=== PATIENT | male | born 1955 | race Caucasian/White ===

== ENCOUNTER 2024-04-01 23:08 | Emergency (ER) | payer OTHER, MEDICARE ==
[2024-04-01 23:37] LABS: BASOPHILS ABSOLUTE AUTO 0.02 K/uL (0.00-0.20); BASOPHILS PERCENT AUTO 0.2 % (0.0-2.0); EOSINOPHILS ABSOLUTE AUTO 0.08 K/uL (0.00-0.50); EOSINOPHILS PERCENT AUTO 0.9 % (0.0-5.0); HEMATOCRIT 38.1 % (39.0-49.0); HEMOGLOBIN 12.8 g/dL (13.1-16.8); LYMPHOCYTES ABSOLUTE AUTO 1.63 K/uL (0.50-3.50); MEAN CORPUSCULAR HEMOGLOBIN 30.7 pg (28.2-33.3); MEAN CORPUSCULAR HGB CONC 33.6 g/dL (31.7-36.0); MEAN CORPUSCULAR VOLUME 91.4 fL (84.0-98.0); MONOCYTES ABSOLUTE AUTO 0.48 K/uL (0.00-1.00); MONOCYTES PERCENT AUTO 5.3 % (2.0-14.0); NEUTROPHILS ABSOLUTE AUTO 6.86 K/uL (1.40-7.00); NEUTROPHILS PERCENT AUTO 75.6 % (45.0-80.0); PLATELET COUNT,PLT 266 K/uL (150-350); RED BLOOD CELL COUNT 4.17 M/uL (4.33-5.41); RED CELL DISTRIBUTION WIDTH 15.8 % (11.2-14.1); WHITE BLOOD CELL COUNT,WBC 9.1 K/uL (4.0-10.2)
[2024-04-02] MEDS: Ondansetron 4 MG Tab.DIS PO ONE (00:08)
[2024-04-02] MEDS: Acetaminophen 500 MG Tab PO ONE (00:12)
[2024-04-02] MEDS: oxyCODONE 5 MG Tab PO ONE (00:12)
[2024-04-02 00:14] LABS: ALANINE AMINOTRANSFERASE,ALT 125 U/L (12-78); ALBUMIN 3.5 g/dL (3.4-5.0); ALKALINE PHOSPHATASE 78 IU/L (46-116); ANION GAP 9.1 meq/L (7-15); ASPARTATE AMNIOTRANSFERASE,AST 108 U/L (15-37); BILIRUBIN TOTAL 0.3 mg/dL (0.2-1.0); BLOOD UREA NITROGEN,BUN 19 mg/dL (7-18); CALCIUM 8.9 mg/dL (8.5-10.1); CARBON DIOXIDE,CO2 26.9 mmol/L (21.0-32.0); CHLORIDE,CL 102 mmol/L (98-107); CREATININE 1.47 mg/dL (0.51-1.17); GLUCOSE RANDOM 248 mg/dL (70-99); POTASSIUM,K 3.6 mmol/L (3.5-5.1); SODIUM,NA 138 mmol/L (136-145)
[2024-04-02 00:18] LABS: ESTIMATED GFR 51 mL/min (>=60)
[2024-04-02] MEDS ORDERED: Sodium Chloride 0.9% 10 ML Syringe FLUSH PRN (00:29)
[2024-04-02] MEDS ORDERED: Naloxone 0.4 MG/ML SDV IVPUSH PRN (00:41)
[2024-04-02] MEDS: Morphine 2 MG/ML SYRINGE IVPUSH ONE (00:54)
== END 2024-04-02 01:35 ==
LOC: LL.ED 23:08
DX: S22.41XA Multiple fractures of ribs, right side, initial encounter for closed fracture (principal); S00.93XA Contusion of unspecified part of head, initial encounter; S00.81XA Abrasion of other part of head, initial encounter; V28.09XA Other motorcycle driver injured in noncollision transport accident in nontraffic accident, initial encounter
CPT/HCPCS: 36415; 70450; 71250; 72070; 72125; 72170; 73552; 80053; 85025; 94761; 96374; 99285; A9270; J2270; 99284